=== PATIENT | female | born 1990 | race Two or more races ===

== ENCOUNTER 2016-06-12 12:37 | Emergency (ER) | payer OTHER ==
[~2016-06-12] VITALS: Ht 154.9 cm; Wt 62.6 kg
[2016-06-12 15:47] VITALS: BP 99/63
== END 2016-06-12 15:47 | disposition home or self-care (01) ==
LOC: ED 12:37
DX: R06.02 Shortness of breath (principal); F41.9 Anxiety disorder, unspecified
CPT/HCPCS: 36600; 94150

== ENCOUNTER 2019-10-12 11:33 | Emergency (ER) | payer OTHER, SELFPAY ==
[~2019-10-12] VITALS: Ht 154.9 cm; Wt 62.1 kg
[2019-10-12 11:36] VITALS: Ht 154.9 cm; Wt 62.1 kg
[2019-10-12 15:06] VITALS: BP 120/83
== END 2019-10-12 15:06 | disposition home or self-care (01) ==
LOC: ED 11:33
DX: R09.89 Other specified symptoms and signs involving the circulatory and respiratory systems (principal); J02.9 Acute pharyngitis, unspecified; M25.511 Pain in right shoulder; Z20.828 Contact with and (suspected) exposure to other viral communicable diseases
CPT/HCPCS: Q0092; U0003-CS